=== PATIENT | male | born 1970 | race Caucasian/White ===

== ENCOUNTER 2022-02-09 19:41 | Observation (INO) | payer BC, SELFPAY ==
[2022-02-09 19:43] VITALS: BP 159/101; PULSE 103; RESP 16; TEMP 37.1; O2SAT 98; BMI 25.9
--- NOTE | 2022-02-09 19:49 | ECG_ITS ---
APPROVED REPORT Exam: Resting ECG HR:102 bpm ECG Measurements Heart Rate 102 AXES NJ 153 P 51 QRSd 98 QRS 12 QT 318 T 11 QTc 377 Conclusion SINUS TACHYCARDIA ABNORMAL RHYTHM ECG UNCONFIRMED REPORT Electronically signed by : Kiko Baumann MD 02/13/2022 08:13:23
--- NOTE | 2022-02-09 20:33 | HMH.EDCP ---
ED Disposition Clinical Impression: Chest pain Qualifiers: Chest pain type: precordial pain Qualified Code(s): R07.2 - Precordial pain Disposition: Admitted as Observation Condition on Discharge: Good - Critical Care Critical Care Time: No Attestation: On 02/09/22, the high probability of a clinically significant, sudden or life threatening deterioration of the following system(s) required my full and direct attention, intervention and personal management. The time I documented below is in addition to time spent performing reported procedures but includes the following listed in this critical care notation. Medical Decision Making - Medical Records Medical records reviewed: Yes: I reviewed the patient's medical records. - Dominik Inquiry Pt receiving controlled substance: No Vital Signs: 02/09/22 19:43 Temperature 98.7 F Temperature Source Oral Pulse Rate [Right] 103 H Respiratory Rate 16 Blood Pressure [Right Arm] 159/101 H Blood Pressure Mean [Right Arm] 120 02 Sat by Pulse Oximetry 98 Oxygen Delivery Method Room Air - Lab Data Lab results reviewed: Yes: I reviewed the patient's lab results. Lab Results 02/09/22 19:40: WBC 10.7, RBC 5.63, Hgb 16.9, Hct 50.2, MCV 89.2, MCH 30.0, MCHC 33.7, RDW 13.5, Plt Count 373, MPV 8.1, Neut % (Auto) 61.0, Lymph % (Auto) 28.0, [place] % (Auto) 8.6, Eos % (Auto) 1.3, Baso % (Auto) 1.1, Neut # (Auto) 6.5, Lymph # (Auto) 3.0, [place] # (Auto) 0.9, Eos # (Auto) 0.1, Baso # (Auto) 0.1 02/09/22 19:40: Sodium 139, Potassium 3.7, Chloride 101, Carbon Dioxide 29, Anion Gap 12.7, BUN 20, Creatinine 1.10, Estimated Creat Clear 94, Estimated GFR 71, Est GFR ( Amer) 86, Glucose 87, Calcium 9.4, Total Bilirubin 0.8, AST 33, ALT 26, Alkaline Phosphatase 87, C-Reactive Protein 2.7, Total Protein 7.9, Albumin 4.6, Globulin 3.3 H, Albumin/Globulin Ratio 1.4, Procalcitonin 0.066 Result diagrams: 02/09/22 19:40 02/09/22 19:40 Orders (Tests/Meds): ED MEDICATIONS Generic Name Dose Route Start Last Admin Trade Name Tory PRN Reason Stop Dose Admin Bisoprolol Fumarate 10 mg 02/09/22 20:45 02/09/22 20:44 Bisoprolol 5mg Tablet PO 03/11/22 20:44 10 mg DAILY EDEL Administration ORDERS Category Date Time Status Rapid PCR Covid and Flu A/B Stat Lab 02/09/22 20:35 Ordered Urinalysis and Microscopic Stat Lab 02/09/22 20:35 Ordered Medical Decision Narrative: acute chest pain with papitations Chest Pain HPI - General Chief Complaint: Chest Pain Stated Complaint: CHEST PRESSURE HEART RATE UP bp Time Seen by Provider: 02/09/22 20:33 Mode of Arrival: Ambulatory Source of Information: Patient, Medical Record Limitations: No Limitations Description of Symptoms (Recalled from ER Triage Doc. by RN): pt stated that he went to the dr a week ago and was put on lisinopril today while on his way home from work he started having chest pressure and Real advised him to come to the ER she spoke with justyn - History of Present Illness HPI narrative: acute onset of chest pain and palpitations and was seen by pcp and sent to ed - MD complaint: chest pain indicative of cardiac Onset (ago): hour(s) Duration: now resolved Activity at onset: during rest Pain location: left chest Severity: moderate Quality: tightness Pain radiation: none Risk Factors for CAD: Family Hx of CAD Treatments prior to or on arrival for Cardiac Chest Pain: none - ANTONIO Score for Non-Stemi Age of Patient: 40-49 years old Heart Rate: 90-109 bpm Systolic Blood Pressure: 140-159 mmHg Serum Creatinine: 0.80-1.19 mg/dl CHF Killip Class: I-No CHF Other Risk Factors: None Non-Stemi Risk Score: 71 - Related Data Home Medications Medication Instructions Recorded Confirmed lisinopriL [Lisinopril] 10 mg PO DAILY 02/09/22 02/09/22 Allergies Allergy/AdvReac Type Severity Reaction Status Date / Time NO KNOWN ALLERGIES Allergy Uncoded 06/07/17 15:20 [facility] History -
--- NOTE | 2022-02-09 20:35 | XR_ITS ---
PROCEDURE INFORMATION: Exam: XR Chest Exam date and time: 02/09/2022 8:40 PM Age: 51 years old Clinical indication: Sternal or substernal pain; Additional info: Chest pain, also states high BP TECHNIQUE: Imaging protocol: Radiologic exam of the chest. Views: 2 views. COMPARISON: No relevant prior studies available. FINDINGS: Lungs: Unremarkable. No consolidation. Pleural spaces: Unremarkable. No pleural effusion. No pneumothorax. Heart/Mediastinum: Unremarkable. No cardiomegaly. Bones/joints: Unremarkable. IMPRESSION: No acute findings.
--- NOTE | 2022-02-09 20:38 | PC.NURSE ---
PATIENT ADMITTED TO SWEET HOME BED TO SERVICE OF DR. LEA.
[2022-02-09 20:53] LABS: Basophils # 0.1 K/mm3 (0-0.2); Basophils % 1.1 % (0.1-2.0); Eosinophils # 0.1 K/mm3 (0.0-0.4); Eosinophils % 1.3 % (0.1-12.0); Hematocrit 50.2 % (42.0-52.0); Hemoglobin 16.9 g/dL (14.1-18.0); Mean Corpuscular HGB Conc 33.7 g/dL (31.8-35.4); Mean Corpuscular Volume 89.2 fl (80-94); Mean Platelet Volume 8.1 fl (7.4-10.4); Monocytes # 0.9 K/mm3 (0.1-1.0); Monocytes % 8.6 % (1.7-9.3); Neutrophils # 6.5 K/mm3 (1.8-7.8); Platelet Count 373 K/mm3 (142-424); Red Blood Count 5.63 M/mm3 (4.60-6.20); Red Cell Distribution Width 13.5 % (11.5-17.5); White Blood Count 10.7 K/mm3 (4.8-10.8)
[2022-02-09 20:58] LABS: Alanine Aminotransferase 26 U/L (12-78); Albumin Level 4.6 g/dl (3.5-5.0); Albumin/Globulin Ratio 1.4 (1.1-1.8); Alkaline Phosphatase 87 U/L (38-126); Anion Gap 12.7 mEq/L (5-15); Aspartate Amino Transferase 33 U/L (17-59); Bilirubin,Total 0.8 mg/dl (0.2-1.3); Blood Urea Nitrogen 20 mg/dl (9-20); Calcium 9.4 mg/dl (8.4-10.2); Carbon Dioxide 29 mmol/L (22.0-30.0); Chloride 101 mmol/L (98-107); Creatinine Clearance Estimated 94 mL/min (50-200); Estimated Glomerular Filt Rate 71 ml/min (>60); GFR (African American) 86 ML/MIN (>60); Globulin 3.3 g/dL (1.3-3.2); Glucose 87 mg/dl (74-100); Potassium 3.7 mmoL/L (3.5-5.1); Sodium 139 mmol/L (136-145); Total Protein,Serum 7.9 g/dl (6.3-8.2)
[2022-02-09 21:04] LABS: C-Reactive Protein 2.7 mg/L (0-4)
[2022-02-09 21:17] LABS: Procalcitonin 0.066 ng/mL (0.0-2.0)
[2022-02-09 22:07] LABS: Troponin I < 0.01 ng/ml (0.00-0.034)
[2022-02-09 23:01] LABS: Influenza A, PCR Not Detected (NotDetected); Influenza B, PCR Not Detected (NotDetected)
[2022-02-09 23:22] LABS: Coronavirus 19, PCR Detected (NotDetected)
[2022-02-09 23:43] VITALS: BP 145/78; PULSE 70; RESP 18; TEMP 36.6; O2SAT 98
--- NOTE | 2022-02-09 23:43 | PC.NURSE ---
pt is positive for covid. Dr. Puente and admission notified and added to admission order.
--- NOTE | 2022-02-09 23:50 | PC.NURSE ---
PT ARRIVED TO FLOOR VIA [facility]IR AT THIS TIME
[2022-02-09 23:56] VITALS: BP 111/77; PULSE 72; RESP 16; TEMP 36.6; O2SAT 94; BMI 24.4
[2022-02-10] VITALS (7 sets, daily range): BP systolic 115–137; BP diastolic 67–85; PULSE 54–71; RESP 16–18; TEMP 36.4–36.8; O2SAT 94–100
--- NOTE | 2022-02-10 02:54 | PC.NURSE ---
pt has rested well since arriving to floor, telemetry shows NSR to SB, no complaints of chest pain or SOA, remains on room air
[2022-02-10 08:18] LABS: Appearance,Urine CLEAR (Clear); Bilirubin,Urine Negative (Negative); Blood, Urine TRACE-I (Negative); Color,Urine YELLOW (Yellow); Glucose,Urine (UA) Negative (Negative); Ketones,Urine Negative (Negative); Leukocyte Esterase,Urine Negative (Negative); Microscopic, Urine URINE MICROSCOPIC (MICROSCOPIC); Nitrate,Urine Negative (Negative); Protein,Urine Negative (Negative); Specific Gravity, Urine 1.025 (1.005-1.030); Urobilinogen,Urine 0.2 EU/dl (0.2)
[2022-02-10 08:20] LABS: Anion Gap 11.8 mEq/L (5-15); Calcium 8.9 mg/dl (8.4-10.2); Carbon Dioxide 28 mmol/L (22.0-30.0); Chloride 103 mmol/L (98-107); Glucose 108 mg/dl (74-100); Potassium 3.8 mmoL/L (3.5-5.1); Sodium 139 mmol/L (136-145)
[2022-02-10 08:40] LABS: Troponin I < 0.01 ng/ml (0.00-0.034)
[2022-02-10 09:06] LABS: Chol/HDL Ratio 5.7 (1-3.5); Cholesterol 165 mg/dl (140-200); HDL Cholesterol 29 mg/dl (40-60); Magnesium 2.1 mg/dl (1.6-2.3); Triglycerides 157 mg/dl (30-150); VLDL Cholesterol 31 mg/dL (0-40)
[2022-02-10 09:15] LABS: Blood Urea Nitrogen 18 mg/dl (9-20); Creatinine Clearance Estimated 109 mL/min (50-200); Estimated Glomerular Filt Rate 90 ml/min (>60); GFR (African American) 109 ML/MIN (>60)
[2022-02-10 10:34] LABS: Hemoglobin 16.5 g/dL (14.1-18.0); Mean Corpuscular HGB Conc 35.8 g/dL (31.8-35.4); Mean Corpuscular Hemoglobin 29.9 pg (27.0-31.2); Mean Corpuscular Volume 83.4 fl (80-94); Mean Platelet Volume 7.6 fl (7.4-10.4); Neutrophils % 57.2 % (37.0-80.0); Platelet Count 297 K/mm3 (142-424); Red Blood Count 5.51 M/mm3 (4.60-6.20); Red Cell Distribution Width 13.1 % (11.5-17.5); White Blood Count 8.6 K/mm3 (4.8-10.8)
[2022-02-10 10:35] LABS: Basophils % 0.5 % (0.1-2.0); Eosinophils # 0.2 K/mm3 (0.0-0.4); Eosinophils % 2.5 % (0.1-12.0); Lymphocytes # 2.5 K/mm3 (0.7-4.5); Lymphocytes % 30.8 % (10-50); Monocytes # 0.8 K/mm3 (0.1-1.0); Monocytes % 9.1 % (1.7-9.3); Neutrophils # 4.9 K/mm3 (1.8-7.8)
[2022-02-10 10:44] LABS: Bacteria,Urine 1+ /lpf; WBC,Urine Occasional #/hpf (0-3)
[2022-02-10 10:45] LABS: Mucus,Urine 1+ /lpf
--- NOTE | 2022-02-10 10:48 | P.CONPHA_ITS ---
[facility] VTE Monitoring Patient Demographics Patient Allergies No Known Allergies Allergy (Verified 02/10/22 00:01) Height: 1.78 m Weight: 77.428 kg Current Active Problems (Updated 02/09/22 @ 23:31 by Nancy Nicole RN) Chest pain (Acute) COVID-19 (Acute) VTE Risk Labs: VTE Related Lab Results Hgb 16.5 g/dL (14.1-18.0) 02/10/22 05:33 Hct 46.0 % (42.0-52.0) 02/10/22 05:33 Plt Count 297 K/mm3 (142-424) 02/10/22 05:33 BUN 18 mg/dl (9-20) 02/10/22 05:33 Creatinine 0.90 mg/dl (0.66-1.25) 02/10/22 05:33 Estimated Creat Clear 109 mL/min (50-200) 02/10/22 05:33 VTE Score: 2 VTE Risk Level: Very Low Risk Prophylaxis VTE Prophylaxis Ordered?: Yes Types of VTE Prophylaxis: TEDS Thigh High Location of Applied Device: Bilateral Lower Extremeties
--- NOTE | 2022-02-10 12:31 | EXP.CARD.CON ---
History of Present Illness History of Present Illness Consult date: 02/10/22 Requesting physician: August Puente Consult reason: chest pain Chief complaint: chest pain History of present illness: This is a 51-year-old white gentleman who presented to the hospital with complaints of chest pain. The patient states that when he came home yesterday he felt really hot and flushed. He states that he had sudden onset of pain in the central aspect of his chest. He states that this was a pressure sensation that radiated up to his head and was pounding. The patient states that the chest pain lasted for about 3 seconds. There were no associated symptoms with the chest pain. He states that this was a 10 out of 10 in intensity. Nothing worsens or improves the pain it lasted just a few seconds and then resolved. He has had no recurrence of chest pain since that time. The patient states that his blood pressure was checked and it was elevated. He went in to see his primary care provider because he had an appointment for recheck of his blood pressure as he was recently started on blood pressure medications. When he got to his primary care provider's office the blood pressure was still elevated and the patient was referred for admission to the hospital due to his elevated blood pressure, tachycardia and episode of chest pain. The patient states he has had no recurrence of his chest pain. He denies any shortness of breath or edema. He denies any fever, chills, nausea, vomiting, diarrhea, PND or orthopnea. Review of Systems Review of Systems Review of systems:: pertinent systems reviewed and negative unless documented below Constitutional Constitutional: Reports system reviewed and no additional complaints, except as documented Eyes Eyes: Reports system reviewed and no additional complaints, except as documented ENT Ears, Nose, Mouth, and Throat: Reports system reviewed and no additional complaints, except as documented *Cardiovascular Cardiovascular: Reports as per HPI, Reports chest pain and Denies dyspnea *Respiratory Respiratory: Reports system reviewed and no additional complaints, except as documented and Denies dyspnea *Gastrointestinal Gastrointestinal: Reports system reviewed and no additional complaints, except as documented *Genitourinary Genitourinary: Reports system reviewed and no additional complaints, except as documented *Musculoskeletal Musculoskeletal: Reports system reviewed and no additional complaints, except as documented Integumentary/Breasts Skin/Breast: Reports system reviewed and no additional complaints, except as documented *Neurologic Neurologic: Reports system reviewed and no additional complaints, except as documented Psychiatric Psychiatric: Reports system reviewed and no additional complaints, except as documented Endocrine Endocrine: Reports system reviewed and no additional complaints, except as documented Hematologic/Lymphatic Hematologic/Lymphatic: Reports system reviewed and no additional complaints, except as documented Allergic/Immunologic Allergic/Immunologic: Reports system reviewed and no additional complaints, except as documented Exam Data for Last 24 hours Vital signs and Labs for Last 24 Hours: Temp Pulse Resp BP Pulse Ox 98.0 F 58 L 16 118/75 100 02/10/22 08:00 02/10/22 08:00 02/10/22 08:00 02/10/22 08:00 02/10/22 08:00 Laboratory Results - last 24 hr 02/09/22 19:40: WBC 10.7, RBC 5.63, Hgb 16.9, Hct 50.2, MCV 89.2, MCH 30.0, MCHC 33.7, RDW 13.5, Plt Count 373, MPV 8.1, Neut % (Auto) 61.0, Lymph % (Auto) 28.0, [place] % (Auto) 8.6, Eos % (Auto) 1.3, Baso % (Auto) 1.1, Neut # (Auto) 6.5, Lymph # (Auto) 3.0, [place] # (Auto) 0.9, Eos # (Auto) 0.1, Baso # (Auto) 0.1 02/09/22 19:40: Sodium 139, Potassium 3.7, Chloride 101, Carbon Dioxide 29, Anion Gap 12.7, BUN 20, Creatinine 1.10, Estimated Creat Clear 94, Estimated GFR 71, Est GFR ( Amer) 86, Glucose 87, Calcium 9.4, Total Bilirubin 0.8, AST 33,
--- NOTE | 2022-02-10 15:24 | EXP.HP ---
*Admission Date: 02/09/22 *Reason for consult:: chest pain *History of present illness: this patient was seen in the [facility] ed with chest pain assoc with tacycardia -pt was admitted for eval by card and treatment [facility] Social History Smoking Status: Never smoker alcohol intake: never current occupational status: employed caffeine: Yes Review of Systems Review of Systems Review of systems:: pertinent systems reviewed and negative unless documented below *Neurologic Neurologic: Reports system reviewed and no additional complaints, except as documented, Denies localized weakness and Denies seizure-like activity Meds Home Medications and Allergies Home Medications Medication Instructions Recorded Confirmed Type lisinopril 10 mg tablet 10 mg PO DAILY Hypertension 02/09/22 02/10/22 History New Prescriptions to Start Prescriptions: Allergies Allergy/AdvReac Type Severity Reaction Status Date / Time No Known Allergies Allergy Verified 02/10/22 00:01 Exam Data for Last 24 hours Vital signs and Labs for Last 24 Hours: Temp Pulse Resp BP Pulse Ox 98.3 F 56 L 16 124/82 98 02/10/22 12:00 02/10/22 12:00 02/10/22 12:00 02/10/22 12:00 02/10/22 08:00 Laboratory Results - last 24 hr 02/09/22 19:40: WBC 10.7, RBC 5.63, Hgb 16.9, Hct 50.2, MCV 89.2, MCH 30.0, MCHC 33.7, RDW 13.5, Plt Count 373, MPV 8.1, Neut % (Auto) 61.0, Lymph % (Auto) 28.0, [place] % (Auto) 8.6, Eos % (Auto) 1.3, Baso % (Auto) 1.1, Neut # (Auto) 6.5, Lymph # (Auto) 3.0, [place] # (Auto) 0.9, Eos # (Auto) 0.1, Baso # (Auto) 0.1 02/09/22 19:40: Sodium 139, Potassium 3.7, Chloride 101, Carbon Dioxide 29, Anion Gap 12.7, BUN 20, Creatinine 1.10, Estimated Creat Clear 94, Estimated GFR 71, Est GFR ( Amer) 86, Glucose 87, Calcium 9.4, Total Bilirubin 0.8, AST 33, ALT 26, Alkaline Phosphatase 87, C-Reactive Protein 2.7, Total Protein 7.9, Albumin 4.6, Globulin 3.3 H, Albumin/Globulin Ratio 1.4, Procalcitonin 0.066 02/09/22 19:40: Troponin I < 0.01 02/09/22 22:50: SARS-CoV-2 (PCR) Detected A, Influenza A Untype (PCR) Not detected, Influenza Type B (PCR) Not detected 02/09/22 : Urine Color Yellow, Urine Appearance Clear, Urine pH 6.0, Ur Specific [place] 1.025, Urine Protein Negative, Urine Glucose (UA) Negative, Urine Ketones Negative, Urine Blood Trace-i, Urine Nitrate Negative, Urine Bilirubin Negative, Urine Urobilinogen 0.2, Ur Leukocyte Esterase Negative, Urine RBC 3-5, Urine WBC Occasional, Urine Bacteria 1+, Urine Mucus 1+ 02/10/22 05:33: Troponin I < 0.01 02/10/22 05:33: WBC 8.6, RBC 5.51, Hgb 16.5, Hct 46.0, MCV 83.4, MCH 29.9, MCHC 35.8 H, RDW 13.1, Plt Count 297, MPV 7.6, Neut % (Auto) 57.2, Lymph % (Auto) 30.8, [place] % (Auto) 9.1, Eos % (Auto) 2.5, Baso % (Auto) 0.5, Neut # (Auto) 4.9, Lymph # (Auto) 2.5, [place] # (Auto) 0.8, Eos # (Auto) 0.2, Baso # (Auto) 0.0 02/10/22 05:33: Sodium 139, Potassium 3.8, Chloride 103, Carbon Dioxide 28, Anion Gap 11.8, BUN 18, Creatinine 0.90, Estimated Creat Clear 109, Estimated GFR 90, Est GFR ( Amer) 109 D, Glucose 108 H D, Calcium 8.9, Magnesium 2.1, Triglycerides 157 H, Cholesterol 165, VLDL Cholesterol 31, HDL Cholesterol 29 L, Cholesterol/HDL Ratio 5.7 H I & O for Last 24 hours: Intake & Output 02/08/22 02/09/22 02/10/22 02/11/22 11:59 11:59 11:59 11:59 Intake Total 308 / 308 Output Total 0 / 0 0 / 0 Balance 308 / 308 0 / 0 Weight 170 lb 11.2 oz Constitutional Constitutional: no acute distress *Routine HEENT Exam Head: Present normocephalic Eye: Present EOMI and PERRL ENT: Present mucous membranes moist *Routine Neck Exam Neck: Present JVD *Routine Respiratory Exam Respiratory: Present decreased breath sounds *Routine Cardiovascular Exam Cardiovascular: Present RRR *Routine Abdominal Exam Abdominal: Present normoactive bowel sounds *Routine Rectal Exam Rectal:: deferred *Routine Genitalia Exam Genitalia:: deferred *Routine Extremities Exam Extremities: Pres
--- NOTE | 2022-02-10 18:27 | PC.NURSE ---
Patient is resting comfortably in bed at this time, denies any cp since arrival to the hospital, stress test completed this shift, remains on RA, ambulates independently, no s/s of distress noted, vss, bed in lowest position with call light in reach.
[2022-02-11] VITALS: BP 111/77; PULSE 60; PULSE 68; RESP 17; TEMP 36.5
[2022-02-11 04:00] VITALS: BP 145/80; PULSE 60; PULSE 63; RESP 18; TEMP 36.6; O2SAT 96
[2022-02-11 05:32] VITALS: BMI 25.0
--- NOTE | 2022-02-11 05:44 | PC.NURSE ---
pt has rested well this shift, has remained on room air, telemetry shows NSR, HR 60-68, SBP 111-145, no complaints of chest pain or SOA
[2022-02-11 08:00] VITALS: BP 124/75; PULSE 56; PULSE 60; RESP 16; TEMP 37.2; O2SAT 96; O2SAT 98
--- NOTE | 2022-02-11 08:56 | EXP.CARD.PN ---
Subjective Subjective Date: 02/11/22 Time: 08:30 Principal diagnosis: chest pain, hypertension, covid-19 Interval history: This is a 51-year-old gentleman who presented with chest pain and underwent GXT Myoview stress testing. He also had an echocardiogram yesterday. Both with normal results. He denies chest pain and dyspnea this morning. He has a history of malignant hypertension with an elevated blood pressure this morning. We will increase lisinopril to 20 mg and continue bisoprolol. He tested positive for COVID-19 this hospital admission but has a history of COVID within the last 90 days. He denies any fever, chills, nausea, vomiting, diarrhea, PND or orthopnea. . Exam Data for Last 24 hours Vital signs and Labs for Last 24 Hours: Temp Pulse Resp BP Pulse Ox 98.9 F 56 L 16 124/75 98 02/11/22 08:00 02/11/22 08:00 02/11/22 08:00 02/11/22 08:00 02/11/22 08:00 Laboratory Results - last 24 hr 02/09/22 : Urine Color Yellow, Urine Appearance Clear, Urine pH 6.0, Ur Specific [place] 1.025, Urine Protein Negative, Urine Glucose (UA) Negative, Urine Ketones Negative, Urine Blood Trace-i, Urine Nitrate Negative, Urine Bilirubin Negative, Urine Urobilinogen 0.2, Ur Leukocyte Esterase Negative, Urine RBC 3-5, Urine WBC Occasional, Urine Bacteria 1+, Urine Mucus 1+ 02/10/22 05:33: WBC 8.6, RBC 5.51, Hgb 16.5, Hct 46.0, MCV 83.4, MCH 29.9, MCHC 35.8 H, RDW 13.1, Plt Count 297, MPV 7.6, Neut % (Auto) 57.2, Lymph % (Auto) 30.8, [place] % (Auto) 9.1, Eos % (Auto) 2.5, Baso % (Auto) 0.5, Neut # (Auto) 4.9, Lymph # (Auto) 2.5, [place] # (Auto) 0.8, Eos # (Auto) 0.2, Baso # (Auto) 0.0 02/10/22 05:33: BUN 18, Creatinine 0.90, Estimated Creat Clear 109, Estimated GFR 90, Est GFR ( Amer) 109 D, Magnesium 2.1, Triglycerides 157 H, Cholesterol 165, VLDL Cholesterol 31, HDL Cholesterol 29 L, Cholesterol/HDL Ratio 5.7 H I & O for Last 24 hours: Intake & Output 02/08/22 02/09/22 02/10/22 02/11/22 23:59 23:59 23:59 23:59 Intake Total 668 / 668 Output Total 0 / 0 100 / 100 Balance 668 / 668 -100 / -100 Weight 170 lb 11.2 oz 170 lb 11.2 oz 175 lb 4 oz Constitutional Constitutional: no acute distress and average body habitus *Routine HEENT Exam Head: Present normocephalic and atraumatic ENT: Present mucous membranes moist *Routine Neck Exam Neck: Present supple, full ROM and normal carotid upstroke; Absent JVD, carotid bruit or lymphadenopathy *Routine Respiratory Exam Respiratory: Present CTA bilaterally, normal respiratory effort, able to speak in complete sentences and symmetric chest movement *Routine Cardiovascular Exam Cardiovascular: Present RRR, Normal S1 and Normal S2; Absent murmur or gallop *Routine Abdominal Exam Abdominal: Present soft and normoactive bowel sounds; Absent tenderness or distended *Routine Extremities Exam Extremities: Present full ROM, pulses intact and normal capillary refill; Absent cyanosis, clubbing or edema *Routine Skin Exam Skin: Present intact and warm; Absent erythema *Routine Neurological Exam Neurological: Present alert, oriented X3 and CN II-XII intact; Absent sensory deficit or motor deficit Routine Psychiatric Exam Psychiatric: Present normal affect Progress Note: A&P Assessment and plan (1) COVID-19: Status: Acute (2) Chest pain: Status: Acute (3) Hypertension: Status: Acute (4) Hyperlipidemia: Status: Acute Assessment and Plan Assessment and Plan for All Diagnoses:: Plan: 1. patient presented to [facility] emergency department with chest pain and hypertension. He has a history of malignant hypertension. Blood pressure is elevated this morning with systolic in the 140s. We will increase lisinopril to 20 mg daily and continue bisoprolol 5 mg daily. 2. Stress test and echo results are normal. Patient has been educated regarding results. 3. His LDL goal is less than 100. We have started him on Lipitor 10 mg nightly. 4. He is s
--- NOTE | 2022-02-11 10:44 | EXP.DC.SUM ---
General Admission date:: 02/09/22 Discharge date: 02/11/22 HPI HPI HPI: this patient was seen in the [facility] ed with chest pain assoc with tacycardia -pt was admitted for eval by card and treatment Exam Data for Last 24 hours Vital signs and Labs for Last 24 Hours: Temp Pulse Resp BP Pulse Ox 98.9 F 56 L 16 124/75 96 02/11/22 08:00 02/11/22 08:00 02/11/22 08:00 02/11/22 08:00 02/11/22 08:00 Laboratory Results - last 24 hr 02/09/22 : Urine RBC 3-5, Urine WBC Occasional, Urine Bacteria 1+, Urine Mucus 1+ I & O for Last 24 hours: Intake & Output 02/08/22 02/09/22 02/10/22 02/11/22 23:59 23:59 23:59 23:59 Intake Total 668 / 668 380 / 380 Output Total 0 / 0 100 / 100 Balance 668 / 668 280 / 280 Weight 170 lb 11.2 oz 170 lb 11.2 oz 175 lb 4 oz *Routine HEENT Exam Head: Present normocephalic Eye: Present EOMI ENT: Present mucous membranes moist *Routine Neck Exam Neck: Present supple *Routine Respiratory Exam Respiratory: Present CTA bilaterally *Routine Cardiovascular Exam Cardiovascular: Present RRR *Routine Abdominal Exam Abdominal: Present soft *Routine Rectal Exam Rectal:: deferred *Routine Genitalia Exam Genitalia:: deferred *Routine Extremities Exam Extremities: Absent cyanosis *Routine Skin Exam Skin: Present intact *Routine Neurological Exam Neurological: Present alert and oriented X3 Hospital Course Hospital Course Hospital Course: seen in consultation with cardiology underwent gxt workup no ischemic features were identified Results Data Completed and Pending Labs on day of discharge: Labs from last 24 hours 02/09/22 Unknown Urine RBC 3-5 Urine WBC Occasional Urine Bacteria 1+ Urine Mucus 1+ DS: Diagnosis Discharge Diagnosis (1) COVID-19: Status: Acute (2) Chest pain: Status: Acute (3) Hypertension: Status: Acute (4) Hyperlipidemia: Status: Acute Meds Home Medications and Allergies Home Medications Medication Instructions Recorded Confirmed Type lisinopril 10 mg tablet 10 mg PO DAILY Hypertension 02/09/22 02/10/22 History atorvastatin 10 mg tablet 10 mg PO HS 30 days #30 tabs 02/11/22 Rx bisoprolol fumarate 5 mg tablet 5 mg PO DAILY 30 days #30 tabs 02/11/22 Rx New Prescriptions to Start Prescriptions: atorvastatin Neus,Ivan bisoprolol fumarate Neus,Ivan Allergies Allergy/AdvReac Type Severity Reaction Status Date / Time No Known Allergies Allergy Verified 02/10/22 00:01 Discharge Plan Disposition Patient Disposition: Home, Self-Care Condition: Good Follow up Plan Follow up with: Real Ponce APRN [Advanced Practice Nurse] - Enter time for follow up Ac Jimenez MD [Staff Physician] - Enter time for follow up Prescriptions/Medication Reconciliation: New atorvastatin 10 mg Tablet 10 mg PO HS 30 Days Qty: 30 10RF bisoprolol fumarate 5 mg Tablet 5 mg PO DAILY 30 Days Qty: 30 10RF Continued lisinopril 10 MG tablet 10 mg PO DAILY Problem Reconciliation Problems Reviewed?: Yes Patient Discharge Instructions ACTIVITY: Continue current activity DIET: continue same diet Patient Instructions: DI for Chronic Pain -- Adult, DI for Chest Pain Providers Primary Care Provider: Real Ponce Admit Provider: August Puente Attending Provider: August Puente
[2022-02-11 10:46] VITALS: BMI 25.0
--- NOTE | 2022-02-11 11:10 | PC.NURSE ---
Rounded on pt, cleaned and straightened room. Pt resting at this time, no needs voiced.
[2022-02-11 11:49] VITALS: BP 141/70; PULSE 67; RESP 18; TEMP 36.4; O2SAT 96
--- NOTE | 2022-02-11 12:29 | PC.NURSE ---
Addendum entered by Rosetta Laureano RN 02/11/22 12:34: spoke with dr biggs who stated that he wanted to leave the lisinopril at 10mg at this time. Original Note: noted in cardiology note to change lisinopril to 20mg daily instead of 10. home med rec noted to continue the 10 mg. awaiting call back from dr. biggs office.
[2022-02-11 15:20] LABS: Direct LDL Cholesterol 101 mg/dL (100-129)
--- NOTE | 2022-02-12 13:08 | CARE MANAGER ---
Spoke with patient and regarding hospital discharge. 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 Denies any other questions or concerns at this time. DORIAN Gutierrez
== END 2022-02-11 13:07 | disposition home or self-care (01) ==
LOC: ER 20:32 → 2ND 20:47
PROVIDERS: Admitting Provider Emergency Medicine; Emergency Provider Emergency Medicine; PCP Nurse Practitioner Family; Visit Provider Emergency Medicine
DX: U07.1 COVID-19 (principal); R07.89 Other chest pain; I10 Essential (primary) hypertension; E78.5 Hyperlipidemia, unspecified; Z82.49 Family history of ischemic heart disease and other diseases of the circulatory system
CPT/HCPCS: 36415; 71046; 78452; 80048; 80053; 80061; 81001; 83735; 84145; 84484; 85025; 86140; 93005; 93017; 93306; 99285; A9502; C9803; G0378; U0003; U0005

== ENCOUNTER 2024-05-30 14:30 | Outpatient (CLI) | payer BC, SELFPAY ==
--- OUTSIDE RECORDS SUMMARY | 2024-05-30 14:33 | XMS_ITS | Clinical Summary ---
Author Organization Healthcare Address [address] [place] [address] Care Team Providers Care Sewing Line Baler Name Role Phone Unavailable Primary Care Provider Unavailabl e Social History Tobacco Use Types Packs/Day Years Used Date Smoking Tobacco: Never Assessed Sex and Gender Information Value Date Recorded Sex Assigned at Not on file Legal Sex Male 1:26 PM EDT Gender Identity Not on file Sexual Orientation Not on file Plan of Treatment Health Maintenance Due Date Last Done Comments [facility]-Depression Screening 1972 [facility]-HIV Screening 1972 [facility]-Hepatitis C Screening 1972 [facility]-Infant/Child/Adol SDOH Screenings 1972 [facility]- SDOH Screenings 1990 [facility]-Adult SDOH Screenings 1990 [facility]-DTaP,Tdap,and Td Vaccine s (1 - Tdap) 09/13/1991 [facility]-Hepatitis B Vaccines (1 of 3 - 19+ 3-dose series) 09/13/1991 CT Colonography 2017 Colonoscopy 2017 FIT-DNA 2017 FIT 2017 FOBT 2017 Sigmoidoscopy 2017 [facility]-Colorectal Cancer Screening 2017 [facility]-Zoster Vaccines (1 of 2) 2022 [id number] Vaccine (2023- season) 2024 06/04/2021, 11/07/2020, 10/10/2020 [facility]-Influenza Vaccine (#1) 2024 [facility]-RSV Vaccine: 60+ Years o r (1 - 1-dose 75+ series) 09/13/2047 [facility]-HIB Vaccines Aged Out No longer e ligible based on patient's age to complete this topic [facility]-HPV Vaccines Aged Out No longer e ligible based on patient's age to complete this topic [facility]-Hepatitis A Vaccines Aged Out No longer eligible based on patient's age to complete this topic [facility]-IPV Vaccines Aged Out No longer e ligible based on patient's age to complete this topic [facility]-Pneumococcal Vaccine: Pediatrics (0 to 5 Years) and At-Risk Patients (6 to 64 Years) Aged Out No longer eligible b ased on patient's age to complete this topic [facility]-Rotavirus Vaccines Aged Out No lo nger eligible based on patient's age to complete this topic Insurance [employer]
--- OUTSIDE RECORDS SUMMARY | 2024-05-30 14:33 | XMS_ITS | Encounter Summary ---
Author Organization [facility] Address [address] [place] [address] Care Team Providers Care Advisor To Command In Combat Name Role Phone Unavailable Primary Care Provider Unavailabl e Encounter Details Date Type Department Care Team (Latest Contact Info) Description 02/10/2022 4:05 PM EDT Ancillary Procedure [facility] [address] [place] [address] [place] [id number] Chest pain, unspecified type Social History Tobacco Use Types Packs/Day Years Used Date Smoking Tobacco: Never Assessed Sex and Gender Information Value Date Recorded Sex Assigned at Not on file Legal Sex Male 1:26 PM EDT Gender Identity Not on file Sexual Orientation Not on file documented as of this encounter Plan of Treatment Not on file documented as of this encounter Procedures Procedure Name Priority Date/Time Associated Diagnosis Comments NM CARDIAC OUTSIDE READ Routine 02/10/2022 4:04 PM EDT Chest pain, unspecified type documented in this encounter Results * NM CARDIAC OUTSIDE READ (02/10/2022 4:04 PM EDT) Target HR 145 bpm CAR DO NOT SEND MPHR 171 bpm CAR DO NOT SEND Exercise duration (min) 12 min CAR DO NOT SEND Exercise duration (sec) 30 sec CAR DO NOT SEND Peak METS 12.8 METS CAR DO NOT SEND Pressure Product 27,056.0 CAR DO NOT SEND % of Max Predicted HR 89 % CAR DO NOT SEND Peak HR 152 bpm CAR DO NOT SEND Baseline Systolic BP 136 CAR DO NOT SEND Baseline Diastolic BP 86 CAR DO NOT SEND Peak BP Systolic 178 mmHg CAR DO NOT SEND Peak BP Diastolic 90 mmHg CAR DO NOT SEND Recovery One Min HR 119 bpm CAR DO NOT SEND Angina Index 0 CAR DO NOT SEND Strauss Treadmill Score 12 [address] DO [address] SEND [address] depression, max 0.0 mm CAR DO NOT SEND Anatomical Region Laterality Modality Echocardiography Narrative 02/10/2022 4:37 PM EDT ?Combined ECG/SPECT: This is a normal nuclear stress test. There no previous examination/report available for comparison or correlation. ?Stress ECG: No ischemic ST segment changes occurred with stress. ?Perfusion: SPECT images demonstrate normal myocardial perfusion. ?Function: Normal left ventricular cavity size. Gated SPECT images demonstrate normal systolic function. Regional wall motion is normal. LV wall thickening appears concordantly normal. ?Strauss treadmill score: +12, which indicates low risk for cardiovascular eevents. ?LVEF: 45 - 49%. Technical Details This SPECT myocardial perfusion study was performed on site at [facility], and interpreted remotely by faculty at the [facility] ([place], [place]). A one-day protocol was followed. 10.54 mCi of Tc-99m sestamibi were injected intravenously at rest. After a waiting period of 45-60 minutes, SPECT imaging of the heart was performed with three-dimensional tomographic reconstructions. The patient performed treadmill exercise using a standard Vahe protocol 31.2 mCi of Tc-99m sestamibi were injected intravenously at peak stress. After a waiting period of 30-45 minutes, post-stress SPECT imaging of the heart was performed in supine and prone position with three-dimensional tomographic reconstructions. Gated SPECT data were obtained to calculate left ventricular volumes and ejection fraction post- stress. Motion correction was not applied to the rest and/or post-stress acquisitions. Stress Findings An exercise stress test was performed. The exercise stress test using a Vahe protocol was performed. The patient exercised for 12 min and 30 sec. Reached stage 4 of the protocol. Achieved a peak of 12.8 METS. The patient had a maximal heart rate of 152 bpm (89% of the MPHR: 171 bpm). The patient's baseline blood pressure was 136/86, and changed to 178/90 with peak exercise. The patient reached target heart rate. The heart rate recovery at 1 minute is normal (>12bpm). The patient had appropriate BP response to exercise. Overall, the patient's functional capacity was good for their age and gender.The patient experienced no chest pain, discomfort, or anginal equivalent. The test was stopped because the patient experienced fatigue. Stress ECG Baseline ECG: The baseline ECG shows normal sinus rhythm and normal axis. Baseline ECG shows no ST segment deviation. Stress and Recovery ECG: No ischemic ST segment changes occurred. There were no arrhythmias during stress. There were no arrhythmias during recovery. ECG Conclusion: No ischemic ST segment changes occurred with stress. Study Impression There is no significant patient motion noted. The SPECT images demonstrate a normal left ventricular cavity size with an estimated left ventricular end-diastolic volume of 116 mL (normal: <149 mL for males, < 102 mL for females, small: <45 mL). There is no stress-induced transient ischemic dilation (TID) of the left ventricular cavity. SPECT images demonstrate normal myocardial perfusion. There is a small, mild perfusion defect located in the basal- mid- distal anteroseptal and inferoseptal myocardium. The perfusion finding is best explained by attenuation artifact related to diaphragm. The gated SPECT images demonstrate normal systolic function. Regional wall motion is normal. LV wall thickening appears concordantly normal. The calculated post-stress LVEF is 45 - 49%. Nuclear Conclusion Combined ECG/SPECT: This is a normal nuclear stress test. There no previous examination/report available for comparison or correlation. us August Puente MD CV CARDIAC NUCLEAR PROCEDURE S Final Result documented in this encounter Visit Diagnoses Diagnosis Chest pain, unspecified type documented in this encounter
--- OUTSIDE RECORDS SUMMARY | 2024-05-30 14:33 | XMS_ITS | Encounter Summary ---
Author Organization Healthcare Address [address] [place] [address] Care Team Providers Care Sales Promotion Representative Name Role Phone Unavailable Primary Care Provider Unavailabl e Encounter Details Date Type Department Care Team (Late st Contact Info) Description 02/10/2022 Orders Only External Location [address] [place] [address] Provider, External Social History Tobacco Use Types Packs/Day Years [...] Name Priority Date/Time Associated Diagnosis Comments NM OUTSIDE IMAGES 02/10/2022 3:11 PM EDT documented in this encounter Results * NM OUTSIDE IMAGES (02/10/2022 3:11 PM EDT) Anatomical Region Laterality Modality Nuclear Medicine 02/10/2022 3:11 PM EDT External Provider IMG NM PROCEDURES Final Result documented in this encounter Visit Diagnoses Not on filedocumented in this encounter
--- OUTSIDE RECORDS SUMMARY | 2024-05-30 14:33 | XMS_ITS | Encounter Summary ---
Author Organization Healthcare Address [address] [place] [address] Care Team Providers Care Frickertron Checker Name Role Phone Unavailable Primary Care Provider Unavailabl e Encounter Details Date Type Department Care Team (Latest Contact Info) Description 02/10/2022 11:17 PM EDT - 02/10/2022 11:59 PM EDT Hospital Encounter [facility] [address] [place] [phone] Examination Discharge Disposition: Home or Self Care Social History Tobacco Use Types Packs/Day Years [...] Name Priority Date/Time Associated Diagnosis Comments NM BONE SCAN WHOLE BODY Routine 02/10/2022 11:17 PM EDT Examination documented in this encounter Results * NM Bone Scan Whole Body (02/10/2022 11:17 PM EDT) Narrative IMAGING - 02/10/2022 11:17 PM EDT This study was performed at an outside facility and has been loaded into the PACS system for reference only. ??This order has been auto-finalized and does not contain a result. us Imaging Upload Radiant IMG NM PROCEDURES Final R esult IMAGING documented in this encounter Visit Diagnoses Diagnosis Examination Unspecified examination documented in this encounter
--- OUTSIDE RECORDS SUMMARY | 2024-05-30 14:33 | XMS_ITS | Encounter Summary ---
Author Organization [facility] Address [address] [place] [address] Care Team Providers Care Virtual Recruiter Name Role Phone Unavailable Primary Care Provider Unavailabl e Encounter Details Date Type Department Care Team (Late st Contact Info) Description 02/10/2022 1:30 PM EDT Ancillary Procedure [facility] [address] [place] [address] [place] [phone] Chest pain; COVID Social History Tobacco Use Types Packs/Day Years [...] Procedure Name Priority Date/Time Associated Diagnosis Comments ADULT ECHO OUTSIDE READ Routine 02/10/2022 1:27 PM EDT Chest pain COVID documented in this encounter Results * ADULT ECHO OUTSIDE READ (02/10/2022 1:27 PM EDT) Baseline Systolic BP 120 CHRIS ISCV Baseline Diastolic BP 78 CHRIS ISCV Heart Rate 64 CHRIS ISCV Height 177.8 CHRIS ISCV Weight 82.1 CHRIS ISCV BSA 2.00 m2 CHRIS ISCV LVIDd 51 mm CHRIS ISCV IVSd 10 mm CHRIS ISCV LVPWd 11 mm CHRIS ISCV LV MASS(C)D 198 g CHRIS ISCV LV RWT 0.41 mm CHRIS ISCV LVIDs 38 mm CHRIS ISCV Ao Root Diam 37 mm CHRIS ISCV TR Vmax 188.4 cm/s CHRIS ISCV TR Max PG 14 mmHG CHRIS ISCV MV E Vmax 72.9 cm/s CHRIS ISCV Anatomical Region Laterality Modality Echocardiography Narrative 02/10/2022 3:28 PM EDT ?Left??Ventricle: The left ventricular systolic function is normal.The LVEF is visually estimated at 60 - 65%. The diastolic function is normal. ?Right??Ventricle: Right ventricle size is normal. The right ventricular systolic function is normal. ?All cardiac valves were reasonably well visualized with 2D and/or color flow Doppler and there was no significant valve regurgitation or stenosis seen. ?Pericardium: No pericardial effusion. ?There is no recent study available for direct [id number] comparison. Left Ventricle Based on the linear dimension and/or 2D volumes, the left ventricle is normal in size. There is normal left ventricular myocardial thickness and mass. The left ventricular systolic function is normal.The LVEF is visually estimated at 60 - 65%. The left ventricular wall motion is normal. The diastolic function is normal. Right Ventricle Right ventricle size is normal. The right ventricular systolic function is normal. Left Atrium The left atrial size is normal. Right Atrium The right atrial size is normal. IVC/SVC The IVC was not well visualized, and an assumed pressure of 8mmHg was used for calculations. Mitral Valve The mitral valve leaflets are normal in appearance with no evidence of mitral valve prolapse. There is trace mitral regurgitation. There is no mitral stenosis. Tricuspid Valve The tricuspid valve is normal in appearance. There is trace tricuspid regurgitation. There is no tricuspid stenosis. Aortic Valve The aortic valve appears to be trileaflet. There is no valvular regurgitation. There is no hemodynamically significant valvular aortic stenosis. Pulmonic Valve The pulmonic valve is grossly normal. There is trace pulmonic regurgitation. There is no pulmonic stenosis. Pericardium No pericardial effusion. Great Vessels The aortic root is normal in size. The sinus of Valsalva (aortic root) diameter is 37 mm by leading edge to leading edge method. The pulmonary artery is not well visualized. Study Details A complete transthoracic echocardiogram using two-dimensional (2D), m-mode, color and spectral flow Doppler imaging was performed. During the study the apical, parasternal and subcostal view was captured. Overall the study quality was adequate. BP: 120/78 mmHg. Heart Rate: 64 bpm. Heart rate was normal. Height: 177.8 cm. Weight: 82.1 kg. BSA: 2.00 m2. The heart rhythm during this exam was most suggestive of a sinus rhythm. Study Recommendation All cardiac valves were reasonably well visualized with 2D and/or color flow Doppler and there was no significant valve regurgitation or stenosis seen. There is no recent study available for direct [id number] comparison. August Puente MD CV ECHO PROCEDURES Final Res ult documented in this encounter Visit Diagnoses Diagnosis Chest pain Unspecified chest pain COVID documented in this encounter
[2024-05-30 14:59] LABS: Basophils # 0.1 K/mm3 (0-0.2); Basophils % 0.7 % (0.1-2.0); Eosinophils # 0.1 K/mm3 (0.0-0.4); Eosinophils % 1.2 % (0.1-12.0); Hematocrit 47.8 % (42.0-52.0); Hemoglobin 16.4 g/dL (14.1-18.0); Lymphocytes % 21.3 % (10-50); Mean Corpuscular HGB Conc 34.4 g/dL (31.8-35.4); Mean Corpuscular Hemoglobin 29.3 pg (27.0-31.2); Mean Corpuscular Volume 85.3 fl (80-94); Mean Platelet Volume 7.6 fl (7.4-10.4); Monocytes # 0.7 K/mm3 (0.1-1.0); Neutrophils # 6.5 K/mm3 (1.8-7.8); Neutrophils % 69.8 % (37.0-80.0); Platelet Count 327 K/mm3 (142-424); Red Cell Distribution Width 13.5 % (11.5-17.5); White Blood Count 9.4 K/mm3 (4.8-10.8)
[2024-05-30 15:20] LABS: Albumin Level 4.5 g/dl (3.5-5.0); Chloride 105 mmol/L (98-107); Potassium 4.8 mmoL/L (3.5-5.1); Sodium 136 mmol/L (136-145)
[2024-05-30 15:22] LABS: Anion Gap 7.8 mEq/L (5-15); Bilirubin,Unconjugated 0.5 mg/dL (0.0-1.1); Blood Urea Nitrogen 19 mg/dl (9-20); Carbon Dioxide 28 mmol/L (22.0-30.0); Estimated Glomerular Filt Rate 79 ml/min (>60); GFR (African American) 95 ML/MIN (>60)
[2024-05-30 15:23] LABS: Alanine Aminotransferase 30 U/L (12-78); Alkaline Phosphatase 78 U/L (38-126); Aspartate Amino Transferase 35 U/L (17-59); Bilirubin,Direct 0.3 mg/dl (0.0-0.4); Bilirubin,Indirect 0.4 mg/dL (0.0-0.9); Bilirubin,Total 0.7 mg/dl (0.2-1.3); Calcium 9.4 mg/dl (8.4-10.2); Chol/HDL Ratio 4.5 (1-3.5); Cholesterol 145 mg/dl (140-200); Glucose 96 mg/dl (74-100); HDL Cholesterol 32 mg/dl (40-60); Total Protein,Serum 7.2 g/dl (6.3-8.2); Triglycerides 150 mg/dl (30-150); VLDL Cholesterol 30 mg/dL (0-40)
[2024-05-30 15:39] LABS: Direct LDL Cholesterol 78.97 mg/dL (100-129)
[2024-05-30 16:05] LABS: Free T4 (Free Thyroxine) 0.93 ng/dl (0.78-2.19)
== END 2024-05-30 23:59 | disposition home or self-care (01) ==
LOC: LAB 14:32
PROVIDERS: PCP Nurse Practitioner Family; Visit Provider Internal Medicine
DX: E78.2 Mixed hyperlipidemia (principal); I10 Essential (primary) hypertension
CPT/HCPCS: 36415; 80048; 80061; 80076; 83036; 84439; 84443; 85025